=== PATIENT | male | born 1960 | race American Indian/Alaskan Native ===

== ENCOUNTER 2017-12-22 17:36 | Outpatient (CLI) | payer BC ==
--- NOTE | 2017-12-22 18:31 | XRay Report ---
FINAL REPORT EXAM: XR HIPS BILAT 2V W/PELVIS HISTORY: HIP PAIN TECHNIQUE: Bilateral hips AP pelvis PRIORS: None. FINDINGS: No fracture identified. No dislocation seen. Femoral heads maintain a normal contour. Joint spaces within normal limits. Adjacent bony pelvis is unremarkable IMPRESSION: Negative hip series
== END 2017-12-22 17:37 | disposition home or self-care (01) ==
LOC: XRAY 17:36
DX: M25.551 Pain in right hip (principal); M25.552 Pain in left hip
CPT/HCPCS: 73521

== ENCOUNTER 2018-01-17 17:39 | Outpatient (CLI) | payer BC ==
--- NOTE | 2018-01-17 22:37 | XRay Report ---
FINAL REPORT PROCEDURE: Three-view lumbar sacral spine series TECHNIQUE: Lumbar spine radiographs, including AP, lateral, and lumbosacral spot views. CPT 47712 HISTORY: [place] COMPARISON: No prior studies are available for comparison. FINDINGS: No fracture or subluxation is visualized. Posterior elements are intact. Small anterior osteophytic spurs are present L2-3, L4-5 and L5-S1 disc spaces. Height of the disc spaces are well preserved. Bone density appears normal. IMPRESSION: Mild degenerative disc disease as described otherwise negative exam..
== END 2018-01-17 17:40 | disposition home or self-care (01) ==
LOC: XRAY 17:39
DX: M51.37 Other intervertebral disc degeneration, lumbosacral region (principal)
CPT/HCPCS: 72100